=== PATIENT | male | born 1985 | race African-American/Black ===

== ENCOUNTER 2017-10-18 16:16 | Emergency (ER) | payer OTHER | END 2017-10-18 19:53 | disposition home or self-care (01) | LOC: M ED 16:16 | DX: Z04.1 Encounter for examination and observation following transport accident (principal); M25.552 Pain in left hip; V49.59XA Passenger injured in collision with other motor vehicles in traffic accident, initial encounter; Y92.410 Unspecified street and highway as the place of occurrence of the external cause; Z79.899 Other long term (current) drug therapy; F17.210 Nicotine dependence, cigarettes, uncomplicated | CPT/HCPCS: 99283 ==